=== PATIENT | male | born 1960 | race Caucasian/White ===

== ENCOUNTER 2016-12-22 10:50 | Inpatient (IN) | payer MEDICAID, OTHER ==
[~2016-12-22 10:50] MED LIST: ACET325S8 PO; ASPI-119 PO; FOLITAB6 PO; MULTIVITAMIN/IRON PO; PHEN200C3 PO; QUET1TAB67 PO; [UNRECOGNIZED DRUG - CODE] PO
[2016-12-22] MEDS ORDERED: SODIUM CHLORIDE 0.9% FLUSH 5 ML FLUSH IVF PRN ×2 (11:00→16:30)
[2016-12-22] MEDS ORDERED: levETIRAcetam 1000 MG INJ 100 ML IV ONE (11:00)
[2016-12-22] MEDS ORDERED: SODIUM CHLOR 0.9% 1000 ML INJ 1,000 ML IV ONE (11:00)
--- NOTE | 2016-12-22 11:18 | PD ---
HPI Chief Complaint: seizure Time Seen by Provider: 10:53 Travel History International Travel<30 days: No Contact w/Intl Traveler<30days: No History of Present Illness HPI Patient is a 56-year-old male with history of dementia, psychosis, seizures, COPD, paranoid schizophrenia, depression, hypertension, cerebral infarction, history of alcohol abuse, presents to ER from [facility], presents to the emergency room for evaluation of seizure episode. As per EMS, patient had 3 seizures within a half hour of each other. Reports that his first seizure lasted 25 seconds, his second seizure lasted 35 seconds, his third seizure lasted about 3-1/2 minutes. Patient currently post-ictal at this time and is unable to provide history of present illness. Patient does take phenytoin 200 mg twice a day, divalproex ER 750 mg twice a day, as well as Keppra 1000 milligrams in the morning and Keppra 1500 mg at bedtime for his seizures. Patient unable to provide history of present illness this time. Patient's PCP is Dr. John Arguelles [facility] Past Medical History Asthma: No Blood Disorders: No Anxiety: Yes Depression: Yes Heart Rhythm Problems: No Cancer: No Cardiovascular Problems: Yes (BILATERAL CAROTID BRUIT) High Cholesterol: No Congestive Heart Failure: No COPD: Yes Cerebrovascular Accident: No Diminished Hearing: No Endocrine: No Gastrointestinal Disorders: Yes GERD: No Glaucoma: No Genitourinary: No Headaches: No Hepatitis: Yes Hiatal Hernia: No Hypertension: Yes Immune Disorder: No Kidney Stones: No Musculoskeletal: No Neurologic: Yes (DEMENTIA, CLOSED HEAD INJURY,SEIZURE DISORDER, HX OF INTRACRANIAL HEMORRHAG) Psychiatric: Yes (DEMENTIA, ANXIETY, DEPRESSION) Reproductive: No Respiratory: Yes (COPD,HX OF PULMONARY MRSA) Myocardial Infarction: No Seizures: Yes Sleep Apnea: No Ulcer: No Past Surgical History Appendectomy: No Cholecystectomy: No Neurologic Surgery: Yes ([facility] 2003) Pacemaker: No Other Surgery: Yes Social History Alcohol Use: Yes (HX OF ETOH ABUSE) Tobacco Use: Yes (2 PPD) Substance Use: Yes (HX OF LONGSTANDING ETOH ABUSE, HX OF RECREATION DRUG USE) Allergies-Medications (Allergen,Severity, Reaction): Coded Allergies: *MDRO Multi-Drug Resistant Organism (Verified Allergy, Unknown, 12/22/16) mrsa sputum Reported Meds & Prescriptions Reported Meds & Active Scripts Active Reported Keppra (Levetiracetam) 750 Mg Tab 1,500 Mg PO HS Keppra (Levetiracetam) 1,000 Mg Tab 1,000 Mg PO DAILY Depakote ER (Divalproex Sodium) 250 Mg Usha 250 Mg PO BID Depakote ER (Divalproex Sodium) 500 Mg Usha 500 Mg PO BID Dilantin-125 Liq (Phenytoin) 125 Mg/5 Ml Susp 200 Mg PO BID Lorazepam 0.5 Mg Tab 0.25 Mg PO HS Caltrate 600 (Calcium Carbonate) 1,500 Mg Tab 1 Tab PO BID Vitamin D3 (Cholecalciferol) 2,000 Unit Cap 2,000 Units PO DAILY @ 1700 Thiamine (Thiamine HCl) 100 Mg Tab 100 Mg PO DAILY @ 1700 Multi Vitamin with Iron (Multiple Vitamins W/ Iron) 1 Tab Tab 1 Tab PO DAILY @ [address] (Aspirin) 81 Mg Tabdr 81 Mg PO DAILY @ 1700 Alendronate (Alendronate Sodium) 70 Mg Tab 70 Mg PO Q7D ON SUNDAY @ 06 Sodium Chloride 1 Gm Tab 1 Gm PO BID Mirtazapine 7.5 Mg Tab 7.5 Mg PO HS Celexa (Citalopram Hydrobromide) 20 Mg Tab 20 Mg PO DAILY @ 1800 Folate (Folic Acid) 1 Mg Tab 1 Mg PO DAILY Seroquel XR (Quetiapine Fumarate) 50 Mg Tab 100 Mg PO HS Mapap (Acetaminophen) 325 Mg Tab 650 Mg PO Q4HR PRN Review of Systems ROS Limitations: Altered Mental Status Physical Exam Exam Limitations: Altered Mental Status, Poor Historian Narrative GENERAL: patient postictal SKIN: Warm and dry. HEAD: Atraumatic. Normocephalic. EYES:. No injection or drainage. ENT: No nasal bleeding or discharge. Mucous membranes pink and moist. NECK: Trachea midline. No JVD. CARDIOVASCULAR: Regular rate and rhythm. No murmur appreciated. RESPIRATORY: No accessory muscle use. Clear to auscultation. Breath sounds equal bilaterally. GASTROINTESTINAL: Abdomen soft, non-tender, nondistended. Hepatic and splenic margins not palpable. MUSCULOSKELETAL: No obvious deformities. No clubbing. No cyanosis. No edema. NEUROLOGICAL: Awake and alert. Patient refuses to move extremities or follow commands. Data Data Last Documented VS Vital Signs Date Time Temp Pulse Resp B/P Pulse Ox O2 Delivery O2 Flow Rate FiO2 12/22/16 11:32 18 99 Nasal Cannula 2 12/22/16 11:31 99.9 97 104/73 Orders Complete Blood Count With Diff (12/22/16 11:00) Phenytoin (Dilantin) (12/22/16 11:00) Valproic Acid (Depakene) (12/22/16 11:00) Drug Screen, Random Urine (12/22/16 11:00) Electrocardiogram (12/22/16 ) Ct Brain W/O Iv Contrast(Rout) (12/22/16 ) Blood Glucose (12/22/16 11:00) Ecg Monitoring (12/22/16 11:00) Iv Access Insert/Monitor (12/22/16 11:00) Oximetry (12/22/16 11:00) Comprehensive Metabolic Panel (12/22/16 11:00) Sodium Chlor 0.9% 1000 Ml Inj (Ns 1000 M (12/22/16 11:00) Sodium Chloride 0.9% Flush (Ns Flush) (12/22/16 11:00) Ua Includes Microscopic (12/22/16 11:00) Levetiracetam 1000 Mg Inj (Keppra 1000 M (12/22/16 11:00) Influenzae A/B Antigen (12/22/16 11:42) Blood Culture (12/22/16 11:42) Chest, Single Ap (12/22/16 13:32) Admit Order (Ed Use Only) (12/22/16 14:22) Labs Laboratory Tests Test 12/22/16 12/22/16 11:18 12:08 White Blood Count 8.6 TH/MM3 Red Blood Count 4.53 MIL/MM3 Hemoglobin 14.6 GM/DL Hematocrit 43.5 % Mean Corpuscular Volume 95.9 FL Mean Corpuscular Hemoglobin 32.2 PG Mean Corpuscular Hemoglobin 33.6 % Concent Red Cell Distribution Width 13.8 % Platelet Count 139 TH/MM3 Mean Platelet Volume 9.6 FL Neutrophils (%) (Auto) 65.3 % Lymphocytes (%) (Auto) 17.2 % Monocytes (%) (Auto) 13.9 % Eosinophils (%) (Auto) 2.7 % Basophils (%) (Auto) 0.9 % Neutrophils # (Auto) 5.6 TH/MM3 Lymphocytes # (Auto) 1.5 TH/MM3 Monocytes # (Auto) 1.2 TH/MM3 Eosinophils # (Auto) 0.2 TH/MM3 Basophils # (Auto) 0.1 TH/MM3 CBC Comment DIFF FINAL Differential Comment Urine Color YELLOW Urine Turbidity CLEAR Urine pH 8.0 Urine Specific Virgil 1.017 Urine Protein 30 mg/dL Urine Glucose (UA) NEG mg/dL Urine Ketones NEG mg/dL Urine Occult Blood SMALL Urine Nitrite NEG Urine Bilirubin NEG Urine Urobilinogen LESS THAN 2.0 MG/DL Urine Leukocyte Esterase NEG Urine RBC 23 /hpf Urine WBC 6 /hpf Urine Squamous Epithelial <1 /hpf Cells Urine Transitional Epithelial <1 /hpf Cells Urine Mucus FEW /lpf Urine Opiates Screen NEG Urine Barbiturates Screen NEG Urine Amphetamines Screen NEG Urine Benzodiazepines Screen NEG Urine Cocaine Screen NEG Urine Cannabinoids Screen NEG MDM Medical Decision Making Medical Screen Exam Complete: Yes Emergency Medical Condition: Yes Interpretation(s) EKG at 1108: Normal sinus rhythm at 95bmp, qt/qtc: 322/374, no acute changes incomplete RBBB Vital Signs Date Time Temp Pulse Resp B/P Pulse Ox O2 Delivery O2 Flow Rate FiO2 12/22/16 11:32 18 99 Nasal Cannula 2 12/22/16 11:31 99.9 97 18 104/73 98 Nasal Cannula 2 12/22/16 11:25 99.9 97 18 104/74 97 Laboratory Tests Test 12/22/16 12/22/16 11:18 12:08 White Blood Count 8.6 TH/MM3 (4.0-11.0) Red Blood Count 4.53 MIL/MM3 (4.50-5.90) Hemoglobin 14.6 GM/DL (13.0-17.0) Hematocrit 43.5 % (39.0-51.0) Mean Corpuscular Volume 95.9 FL (80.0-100.0) Mean Corpuscular Hemoglobin 32.2 PG (27.0-34.0) Mean Corpuscular Hemoglobin 33.6 % Concent (32.0-36.0) Red Cell Distribution Width 13.8 % (11.6-17.2) Platelet Count 139 TH/MM3 (150-450) Mean Platelet Volume 9.6 FL (7.0-11.0) Neutrophils (%) (Auto) 65.3 % (16.0-70.0) Lymphocytes (%) (Auto) 17.2 % (9.0-44.0) Monocytes (%) (Auto) 13.9 % (0.0-8.0) Eosinophils (%) (Auto) 2.7 % (0.0-4.0) Basophils (%) (Auto) 0.9 % (0.0-2.0) Neutrophils # (Auto) 5.6 TH/MM3 (1.8-7.7) Lymphocytes # (Auto) 1.5 TH/MM3 (1.0-4.8) Monocytes # (Auto) 1.2 TH/MM3 (0-0.9) Eosinophils # (Auto) 0.2 TH/MM3 (0-0.4) Basophils # (Auto) 0.1 TH/MM3 (0-0.2) CBC Comment DIFF FINAL Differential Comment Urine Color YELLOW (YELLW/STRAW) Urine Turbidity CLEAR (CLEAR) Urine pH 8.0 (5.0-8.5) Urine Specific Virgil 1.017 (1.002-1.035) Urine Protein 30 mg/dL (NEG-TRACE) Urine Glucose (UA) NEG mg/dL (NEG) Urine Ketones NEG mg/dL (NEG) Urine Occult Blood SMALL (NEG) Urine Nitrite NEG (NEG) Urine Bilirubin NEG (NEG) Urine Urobilinogen LESS THAN 2.0 MG/DL (LESS THAN 2.0) Urine Leukocyte Esterase NEG (NEG) Urine RBC 23 /hpf (0-3) Urine WBC 6 /hpf (0-5) Urine Squamous Epithelial <1 /hpf (0-5) Cells Urine Transitional Epithelial <1 /hpf (NONE) Cells Urine Mucus FEW /lpf (OCC) Urine Opiates Screen NEG (NEG) Urine Barbiturates Screen NEG (NEG) Urine Amphetamines Screen NEG (NEG) Urine Benzodiazepines Screen NEG (NEG) Urine Cocaine Screen NEG (NEG) Urine Cannabinoids Screen NEG (NEG) Last Impressions Head CT 12/22/16 0000 Signed Impressions: Service Date/Time: Thursday, December 22, 2016 11:45 - CONCLUSION: 1. Old areas of cortical infarct involving the high left posterior parietal cortex and postsurgical changes. Stable compared to previous exam. Randolph Ulloa MD Differential Diagnosis Seizure, ACS, arrhythmia, intracranial hemorrhage, CVA, TIA, electrolyte abnormality Narrative Course Patient is a 56-year-old male who presents to emergency room after he had 3 seizures today. Patient does have history of seizure, and is on 3 different medications for this. He also has a history of dementia, I am unsure what his baseline mental status is. Patient at this time is post ictal and is not following commands, will place patient on seizure precautions. Patient was placed on a monitor and storage bin tender upon arrival to the emergency room. We' ll continue to monitor patient. CAT scan of his head as well as labs obtained. We'll obtain levels for his seizure medication. We'll also give patient a Keppra Bolus. case reviewed with Dr Kong who accepts pt to service of Dr Miller Call made to lab, bmp hemolyzed for the second time - lab request redraw - I have requested that lab come to ER to draw sample given 2 hemolyzed samples Diagnosis Primary Impression: Status epilepticus Additional Impression: Hyponatremia Admitting Information Admitting Physician Requests: Marilu Shah DO Dec 22, 2016 11:18
[2016-12-22 11:25] VITALS: BP 104/74; PULSE 97; RESP 18; TEMP 99.9; O2SAT 97
[2016-12-22 11:31] VITALS: BP 104/73; PULSE 97; RESP 18; TEMP 99.9; O2SAT 98
[2016-12-22 11:32] VITALS: RESP 18; O2SAT 99
--- NOTE | 2016-12-22 12:00 | RADRPT ---
EXAM DATE/TIME: 12/22/2016 11:45 [facility] COMPARISON: CT BRAIN W/O CONTRAST, March 21, 2013, 3:52. INDICATIONS : Altered mental status. RADIATION DOSE: 38.36 CTDIvol (mGy) MEDICAL HISTORY : Dementia. Seizures. Chronic obstructive pulmonary disease. SURGICAL HISTORY : Craniotomy. ENCOUNTER: Initial ACUITY: 1 day PAIN SCALE: 5/10 LOCATION: cranial TECHNIQUE: Multiple contiguous axial images were obtained of the head. Using automated exposure control and adj ustment of the mA and/or kV according to patient size, radiation dose was kept as low as reasonably a chievable to obtain optimal diagnostic quality images. FINDINGS: The examination demonstrates dilation of the ventricular system. Ventricles appear dilated in proport ion to sulcal atrophy. The ventricles are stable when compared to prior study dated 03/21/13. The exam demonstrates a size where of encephalomalacia in the high left parietal cortex. This is stab le compared to previous examination as well. No mass lesion is identified. No acute intracranial hemorrhage is present. No significant extra-axial fluid collections are seen. The visualized bony structures demonstrate postsurgical changes within the skull but are otherwise un remarkable. CONCLUSION: 1. Old areas of cortical infarct involving the high left posterior parietal cortex and postsurgical c hanges. Stable compared to previous exam. Randolph Ulloa MD on December 22, 2016 at 11:57 Board Certified Radiologist. This report was verified electronically.
[2016-12-22 12:03] LABS: AUTOMATED NEUTROPHIL # 5.6 TH/MM3 (1.8-7.7); BASOPHIL # 0.1 TH/MM3 (0-0.2); BASOPHIL % 0.9 % (0.0-2.0); EOSINOPHIL # 0.2 TH/MM3 (0-0.4); EOSINOPHIL % 2.7 % (0.0-4.0); HEMATOCRIT 43.5 % (39.0-51.0); HEMO FLAGS DIFF FINAL; LYMPH % 17.2 % (9.0-44.0); LYMPHOCYTE # 1.5 TH/MM3 (1.0-4.8); MEAN CELL VOLUME 95.9 FL (80.0-100.0); MEAN CORPUSCULAR HEMOGLOBIN 32.2 PG (27.0-34.0); MEAN CORPUSCULAR HGB CONC 33.6 % (32.0-36.0); MONO % 13.9 % (0.0-8.0); NEUT % 65.3 % (16.0-70.0); PLATELET COUNT 139 TH/MM3 (150-450); RED BLOOD COUNT 4.53 MIL/MM3 (4.50-5.90); RED CELL DISTRIBUTION WIDTH 13.8 % (11.6-17.2); WHITE BLOOD COUNT 8.6 TH/MM3 (4.0-11.0)
[2016-12-22 12:26] LABS: BLOOD, URINE SMALL (NEG); GLUCOSE,URINE NEG (NEG); KETONE, URINE NEG (NEG); MUCUS URINE FEW /lpf (OCC); NITRITE,URINE NEG (NEG); SQUAMOUS EPITHELIAL CELL URINE <1 /hpf (0-5); TRANSITIONAL EPI CELLS, URINE <1 /hpf; URINE COLOR YELLOW (YELLW/STRAW)
[2016-12-22 12:32] LABS: AMPHETAMINE, URINE NEG (NEG); BARBITURATES, URINE NEG (NEG); COCAINE, URINE NEG (NEG)
[2016-12-22] MEDS ORDERED: QUET50XR PO (14:20)
[2016-12-22] MEDS ORDERED: MAPA325T PO (14:20)
[2016-12-22] MEDS ORDERED: FOLI1TAB4 PO (14:21)
[2016-12-22] MEDS ORDERED: CELE20TA PO (14:24)
[2016-12-22] MEDS ORDERED: MIRT1TAB PO (14:24)
[2016-12-22] MEDS ORDERED: SODI1TAB PO (14:27)
[2016-12-22] MEDS ORDERED: ALEN1TAB48 PO (14:27)
[2016-12-22] MEDS ORDERED: ASPI81TA5 PO (14:30)
[2016-12-22] MEDS ORDERED: MULT-136 PO (14:30)
[2016-12-22] MEDS ORDERED: THIA100T PO (14:33)
[2016-12-22] MEDS ORDERED: VITA2000 PO (14:33)
[2016-12-22] MEDS ORDERED: CALTTAB5 PO (14:33)
--- NOTE | 2016-12-22 14:33 | RADRPT ---
EXAM DATE/TIME: 12/22/2016 14:13 [facility] COMPARISON: CHEST SINGLE AP, December 03, 2012, 16:02. INDICATIONS : Seizure. MEDICAL HISTORY : Chronic obstructive pulmonary disease. Seizures. SURGICAL HISTORY : None. ENCOUNTER: Initial ACUITY: 1 day PAIN SCORE: 0/10 LOCATION: Bilateral chest FINDINGS: The examination demonstrates moderate COPD changes. The heart is normal size. Mediastinal contours ar e within normal limits. The visualized bony structures demonstrate degenerative changes but are other kumar intact. CONCLUSION: COPD changes. No acute abnormality identified Randolph Ulloa MD on December 22, 2016 at 14:30 Board Certified Radiologist. This report was verified electronically.
[2016-12-22] MEDS ORDERED: LORA-373 PO (14:35)
[2016-12-22] MEDS ORDERED: DILA125S PO (14:40)
[2016-12-22] MEDS ORDERED: DEPA500T3 PO (14:40)
[2016-12-22] MEDS ORDERED: DIVA250ER PO (14:42)
[2016-12-22] MEDS ORDERED: KEPP10002 PO (14:45)
[2016-12-22] MEDS ORDERED: KEPP750T PO (14:45)
[2016-12-22 15:24] LABS: ALT (GPT) 21 U/L (12-78); ANION GAP 7 MEQ/L (5-15); BICARBONATE 23.2 MEQ/L (21.0-32.0); BLOOD UREA NITROGEN 9 MG/DL (7-18); CHLORIDE 100 MEQ/L (98-107); GLOMERULAR FILTRATION RATE 112 ML/MIN (>89); SODIUM (NA) 130 MEQ/L (136-145)
[2016-12-22 15:26] LABS: ALKALINE PHOSPHATASE 92 U/L (45-117); TOTAL BILIRUBIN ADULT 0.6 MG/DL (0.2-1.0)
[2016-12-22 15:28] LABS: AST (GOT) 37 U/L (15-37); POTASSIUM 5.2 MEQ/L (3.5-5.1)
[2016-12-22] MEDS ORDERED: ACETAMINOPHEN 325 MG TAB PO PRN (16:30)
--- NOTE | 2016-12-22 16:56 | EKG ---
Date Performed: 12/22/2016 Time Performed: 11:08:43 PTAGE: 56 years EKG: Sinus rhythm POSSIBLE LEFT ATRIAL ENLARGEMENT INCOMPLETE RIGHT BUNDLE BRANCH BLOCK Compared to prior tracing no s ignificant change BORDERLINE ECG PREVIOUS TRACING : 03/21/2013 04.09 DOCTOR: Thierno Dias Interpretating Date/Time 12/22/2016 16:53:36
[2016-12-22] MEDS: SODIUM CHLOR 0.9% 1000 ML INJ 1,000 ML IV SCH ×2 (17:00→18:19)
--- NOTE | 2016-12-22 17:11 | HHI.FPPN ---
Subjective Subjective Patient seen and examined with the resident team. Case reviewed and discussed Please refer to resident H&P for further details regarding HPI, ROS, PMH, SurgHx , FH and SocHx In summary, patient is a 56yoM with a history of baseline cognitive impairment and seizure disorder on multiple anti-epileptics, presenting with status epilepticus. Per report, patient had 3 witnessed seizures at [facility] where he resides. He was loaded with Keppra upon arrival to the ED and is laying in bed at the time of our encounter. [facility] Objective Objective Last Impressions Chest X-Ray 12/22/16 1332 Signed Impressions: Service Date/Time: Thursday, December 22, 2016 14:13 - CONCLUSION: COPD changes. No acute abnormality identified Randolph Ulloa MD Head CT 12/22/16 0000 Signed Impressions: Service Date/Time: Thursday, December 22, 2016 11:45 - CONCLUSION: 1. Old areas of cortical infarct involving the high left posterior parietal cortex and postsurgical changes. Stable compared to previous exam. Randolph Ulloa MD Laboratory Tests - Abnormals Test 12/22/16 12/22/16 12/22/16 11:18 12:08 14:56 Platelet Count 139 TH/MM3 Monocytes (%) (Auto) 13.9 % Monocytes # (Auto) 1.2 TH/MM3 Urine Protein 30 mg/dL Urine Occult Blood SMALL Urine RBC 23 /hpf Urine WBC 6 /hpf Urine Mucus FEW /lpf Sodium Level 130 MEQ/L Potassium Level 5.2 MEQ/L Calcium Level 8.3 MG/DL Albumin 3.3 GM/DL Phenytoin (Dilantin) Level 9.4 MCG/ML Valproic Acid (Depakene) Level 20 MCG/ML Vital Signs 12/22/16 12/22/16 12/22/16 11:25 11:31 11:32 Temp 99.9 99.9 Pulse 97 97 Resp 18 18 18 B/P 104/74 104/73 Pulse Ox 97 98 99 O2 Delivery Nasal Cannula Nasal Cannula O2 Flow Rate 2 2 Physical exam GENERAL: WDWN male, appears older than age. NAD, awake SKIN: Warm and dry. Seborrheic dermatitis across face and scalp HEAD: Normocephalic AT. EYES: No scleral icterus. No injection or drainage. There is horizontal nystagmus bilaterally ENT: OP without evidence of buccal mucosal damage or tongue-biting NECK: Supple, trachea midline. No JVD or lymphadenopathy. No audible carotid bruits CARDIOVASCULAR: Regular rate and rhythm without murmurs, gallops, or rubs. RESPIRATORY: Breath sounds equal bilaterally across anterior lung muller. No accessory muscle use. GASTROINTESTINAL: Abdomen soft, non-tender, nondistended. Normal active BS. + Loss of urine. MUSCULOSKELETAL: No cyanosis, or edema. NO calf tenderness BACK: Nontender without obvious deformity. No CVA tenderness. NEURO: Awake, oriented to self alone. Cannot follow commands. MAEW Assessment Assessment 56yoM admitted with: Status epilepticus Hx seizure disorder Hx CVA with cognitive impairment UTI Hyponatremia Hyperkalemia PLAN PLAN Neuro checks Head CT neg Check levels of anti-epileptic medications EEG UA concerning for UTI, will follow urine culture Empiric antibiotic coverage of UTI Neurology consultation Seizure precautions Resume home meds as appropriate PT consult Follow electrolytes Patient seen and examined with the resident team. Case reviewed and discussed Agree with plan of care as discussed with me and documented in the resident note. Polina Miller MD Dec 22, 2016 17:11
[2016-12-22] MEDS ORDERED: PILL SPLITTER OTHER PRN (17:15)
--- NOTE | 2016-12-22 18:00 | HHI.HP ---
HPI Service Family Medicine Primary Care Physician Unknown Admission Diagnosis Status Epilepticus Diagnoses: International Travel<30 Days: No Contact w/Intl Traveler<30days: No Known Affected Area: No History of Present Illness Patient is a 56-year-old man with a history of seizure disorder on Keppra, Dilantin, and valproic acid, TBI, CVA, alcohol and substance abuse, dementia, psychiatric conditions who presents post-ictal after seizures. Per report, patient had 3 witnessed seizures at [facility]. Patient is unable to provide any history because of his altered mental status, post-ictal and with baseline cognitive impairment. (Milan Navarro MD R1) Review of Systems ROS Limitations: Altered Mental Status, Poor Historian (Milan Navarro MD R1) Past Family Social History Past Medical History From chart review: TBI status post craniotomy with subsequent seizure disorder Hepatitis C positive COPD Anxiety Depression EtOH abuse Seizures disorder Past Surgical History Left parietal Craniotomy in 2002 secondary to intracranial hemorrhage on 03/2003 Reported Medications Reported Meds & Active Scripts Active Reported Keppra (Levetiracetam) 750 Mg Tab 1,500 Mg PO HS Keppra (Levetiracetam) 1,000 Mg Tab 1,000 Mg PO DAILY Depakote ER (Divalproex Sodium) 250 Mg Usha 250 Mg PO BID Depakote ER (Divalproex Sodium) 500 Mg Usha 500 Mg PO BID Dilantin-125 Liq (Phenytoin) 125 Mg/5 Ml Susp 200 Mg PO BID Lorazepam 0.5 Mg Tab 0.25 Mg PO HS Caltrate 600 (Calcium Carbonate) 1,500 Mg Tab 1 Tab PO BID Vitamin D3 (Cholecalciferol) 2,000 Unit Cap 2,000 Units PO DAILY @ 1700 Thiamine (Thiamine HCl) 100 Mg Tab 100 Mg PO DAILY @ 1700 Multi Vitamin with Iron (Multiple Vitamins W/ Iron) 1 Tab Tab 1 Tab PO DAILY @ [address] (Aspirin) 81 Mg Tabdr 81 Mg PO DAILY @ 1700 Alendronate (Alendronate Sodium) 70 Mg Tab 70 Mg PO Q7D ON SUNDAY @ 06 Sodium Chloride 1 Gm Tab 1 Gm PO BID Mirtazapine 7.5 Mg Tab 7.5 Mg PO HS Celexa (Citalopram Hydrobromide) 20 Mg Tab 20 Mg PO DAILY @ 1800 Folate (Folic Acid) 1 Mg Tab 1 Mg PO DAILY Seroquel XR (Quetiapine Fumarate) 50 Mg Tab 100 Mg PO HS Mapap (Acetaminophen) 325 Mg Tab 650 Mg PO Q4HR PRN (Milan Navarro MD R1) Allergies: Coded Allergies: *MDRO Multi-Drug Resistant Organism (Verified Allergy, Unknown, 12/22/16) mrsa sputum Active Ordered Medications Current Medications Medications (Trade) Dose Ordered Sig/Fish Route Start Time Stop Time Status Last Admin (Depakote Er) 250 mg BID PO 12/22/16 21:00 12/22/16 23:53 (Depakote Er) 500 mg BID PO 12/22/16 21:00 12/22/16 23:52 (Folate) 1 mg DAILY PO 12/23/16 09:00 (Keppra) 1,000 mg DAILY PO 12/23/16 09:00 (Keppra) 1,500 mg HS PO 12/22/16 21:00 12/22/16 23:52 (Ativan) 0.25 mg HS PO 12/22/16 21:00 12/22/16 23:53 (Remeron) 7.5 mg HS PO 12/22/16 21:00 12/22/16 23:51 (Dilantin Liq) 200 mg BID PO 12/22/16 21:00 12/22/16 23:51 (Sodium Chloride) 1 gm BID PO 12/22/16 21:00 12/22/16 23:52 (Vitamin B1) 100 mg DAILY PO 12/23/16 09:00 Quetiapine Fumarate 50 mg 50 mg BID PO 12/22/16 21:00 12/22/16 23:53 (NS 1000 ml Inj) 1,000 ml @ 75 mls/hr [id number] IV 12/22/16 17:00 12/22/16 17:00 (NS Flush) 2 ml UNSCH PRN IVF 12/22/16 16:30 (NS Flush) 2 ml BID IVF 12/22/16 21:00 12/22/16 23:54 (Tylenol) 650 mg Q4H PRN PO 12/22/16 16:30 (Oscal) 500 mg BID PO 12/22/16 21:00 12/22/16 23:53 (Vitamin D3) 2,000 units DAILY PO 12/23/16 09:00 (CeleXA) 20 mg DAILY PO 12/23/16 09:00 Miscellaneous 1 ea 1 ea UNSCH PRN OTHER 12/22/16 17:15 (Rocephin Inj/NS Inj) 100 ml @ 200 mls/hr Q24H IV 12/22/16 22:00 12/22/16 23:55 Family History From chart review: Mom has COPD. Dad secondary to complications of asbestosis. Brother had unknown cancer. Daughter of unknown reasons. Social History History of alcohol and tobacco use per chart review. (Milan Navarro MD R1) Physical Exam Vital Signs Vital Signs Date Time Temp Pulse Resp B/P Pulse Ox O2 Delivery O2 Flow Rate FiO2 12/22/16 11:32 18 99 Nasal Cannula 2 12/22/16 11:31 99.9 97 18 104/73 98 Nasal Cannula 2 12/22/16 11:25 99.9 97 18 104/74 97 Physical Exam GENERAL: This is a well-nourished, well-developed patient, in no apparent distress. SKIN: Linear scars running horizontally across chest. No rashes, ecchymoses or lesions. Cool and dry. HEAD: Atraumatic. Normocephalic. EYES: Pupils equal round and reactive. Extraocular motions intact. No scleral icterus. No injection or drainage. ENT: Nose without bleeding, purulent drainage. Moist mucous membranes. Poor dentition. Airway patent. NECK: Trachea midline. No JVD or lymphadenopathy. Supple, nontender, no meningeal signs. CARDIOVASCULAR: Regular rate and rhythm without murmurs, gallops, or rubs. RESPIRATORY: Clear to auscultation. Breath sounds equal bilaterally. No wheezes , rales, or rhonchi. GASTROINTESTINAL: Abdomen soft, non-tender, nondistended. No guarding. MUSCULOSKELETAL: Extremities without clubbing, cyanosis, or edema. No joint tenderness, effusion, or edema noted. No calf tenderness. NEUROLOGICAL: Awake and alert and oriented to person but not to place or time or situation. Cranial nerves II through XII grossly intact. Motor and sensory grossly within normal limits. Patient cognitively impaired. Laboratory Laboratory Tests Test 12/22/16 12/22/16 12/22/16 11:18 12:08 14:56 White Blood Count 8.6 Red Blood Count 4.53 Hemoglobin 14.6 Hematocrit 43.5 Mean Corpuscular Volume 95.9 Mean Corpuscular Hemoglobin 32.2 Mean Corpuscular Hemoglobin 33.6 Concent Red Cell Distribution Width 13.8 Platelet Count 139 Mean Platelet Volume 9.6 Neutrophils (%) (Auto) 65.3 Lymphocytes (%) (Auto) 17.2 Monocytes (%) (Auto) 13.9 Eosinophils (%) (Auto) 2.7 Basophils (%) (Auto) 0.9 Neutrophils # (Auto) 5.6 Lymphocytes # (Auto) 1.5 Monocytes # (Auto) 1.2 Eosinophils # (Auto) 0.2 Basophils # (Auto) 0.1 CBC Comment DIFF FINAL Differential Comment Urine Color YELLOW Urine Turbidity CLEAR Urine pH 8.0 Urine Specific [place] 1.017 Urine Protein 30 Urine Glucose (UA) NEG Urine Ketones NEG Urine Occult Blood SMALL Urine Nitrite NEG Urine Bilirubin NEG Urine Urobilinogen LESS THAN 2.0 Urine Leukocyte Esterase NEG Urine RBC 23 Urine WBC 6 Urine Squamous Epithelial <1 Cells Urine Transitional Epithelial <1 Cells Urine Mucus FEW Urine Opiates Screen NEG Urine Barbiturates Screen NEG Urine Amphetamines Screen NEG Urine Benzodiazepines Screen NEG Urine Cocaine Screen NEG Urine Cannabinoids Screen NEG Sodium Level 130 Potassium Level 5.2 Chloride Level 100 Carbon Dioxide Level 23.2 Anion Gap 7 Blood Urea Nitrogen 9 Creatinine 0.73 Estimat Glomerular Filtration 112 Rate Random Glucose 87 Calcium Level 8.3 Total Bilirubin 0.6 Aspartate Amino Transf 37 (AST/SGOT) Alanine Aminotransferase 21 (ALT/SGPT) Alkaline Phosphatase 92 Total Protein 7.4 Albumin 3.3 Phenytoin (Dilantin) Level 9.4 Valproic Acid (Depakene) Level 20 Date/Time Procedure Status Source Growth 12/22/16 12:20 Aerobic Blood Culture Received Blood Peripheral Pending 12/22/16 12:20 Anaerobic Blood Culture Received Blood Peripheral Pending 12/22/16 12:08 Urine Culture Received Urine Clean Catch Pending (Milan Navarro MD R1) Result Diagram: 12/22/16 1118 12/22/16 1456 Imaging Last Impressions Chest X-Ray 12/22/16 1332 Signed Impressions: Service Date/Time: Thursday, December 22, 2016 14:13 - CONCLUSION: COPD changes. No acute abnormality identified Randolph Ulloa MD Head CT 12/22/16 0000 Signed Impressions: Service Date/Time: Thursday, December 22, 2016 11:45 - CONCLUSION: 1. Old areas of cortical infarct involving the high left posterior parietal cortex and postsurgical changes. Stable compared to previous exam. Randolph Ulloa MD Course In emergency department, patient received Keppra 1000 mg IV bolus 1, UA, CMP, CT brain without IV contrast, EKG, UDS, Depakote level, Dilantin level, CBC, blood culture, influenza A/B antigen, chest x-ray. (Milan Navarro MD R1) Assessment and Plan Assessment and Plan Patient is a 56-year-old man with a history of seizure disorder on Keppra, Dilantin, and valproic acid, TBI, CVA, alcohol and substance abuse, dementia, psychiatric conditions who presents post-ictal after 3 witnessed seizures. Patient also found to have hyponatremia, hyperkalemia, possible UTI. Code Status No code DNR per documents from [facility] Discussed Condition With dw Dr. Reinier Kong, (Milan Navarro MD R1) Attending Attestation The patient has been seen and examined. The chart and all resident notes have been reviewed. I agree that inpatient care is appropriate and that a two midnight stay is expected for the reasons documented in the resident history and physical. I have discussed this with the resident and certify the resident s order for inpatient admission. (Polina Miller MD) Problem List: (1) Status epilepticus Status: Acute Plan: Patient is a 56-year-old man with a history of seizure disorder on Keppra , Dilantin, and valproic acid, TBI, CVA, alcohol and substance abuse, dementia, psychiatric conditions who presents post-ictal after 3 witnessed seizures. Patient also found to have hyponatremia, hyperkalemia, possible UTI. Admit to inpatient Consult neurology BMP, CBC daily Keppra, Dilantin, Depakote levels Continue home antiepileptic medications as below: * Depakote ER 500 mg by mouth twice a day * Depakote ER 250 mg by mouth twice a day * Keppra 1.5 g by mouth daily at bedtime * Keppra 1 g by mouth daily * Ativan 0.25 mg by mouth daily at bedtime * Dilantin liquid 200 mg by mouth twice a day Head CT negative Neuro checks Monitor vital signs EEG Seizure precautions PT consult Administer oxygen as needed Normal saline IV at 75 mL per hour Blood culture, urine culture, influenza A/B antigen (2) UTI (urinary tract infection) Status: Resolved Plan: UA concerning for UTI. Follow urine culture Empiric antibiotic coverage of UTI with ceftriaxone 1 g IV every 24 hours; may discontinue pending results of urine culture (3) Hyponatremia Status: Acute Plan: Patient since with hyponatremia with sodium of 130. Normal saline IV at 75 mL per hour (4) Hyperkalemia Status: Acute Plan: Patient presents with hyperkalemia with potassium 5.2. No peaked T's in EKG. Continue to monitor (5) Psychiatric diagnosis Status: Chronic Plan: Continue home medications as below: Celexa 20 mg by mouth daily Remeron 7.5 mg by mouth daily at bedtime Seroquel 50 mg by mouth twice a day (6) Nutrition, metabolism, and development symptoms Status: Acute Plan: Fluids: Normal saline IV at 75 mL per hour Electrolytes: Monitor and replete as above Nutrition: Regular basic diet. Continue patient's home nutritional supplements as below: Calcium carbonate 500 mg by mouth twice a day Cholecalciferol 2000 units by mouth daily Folic acid 1 mg by mouth daily Thiamine 100 mg by mouth daily GI prophylaxis: None currently indicated (7) No contraindication to deep vein thrombosis (DVT) prophylaxis Status: Acute Plan: DVT prophylaxis: Lovenox 40 mg subcutaneous every 24 hours (Milan Navarro MD R1) Physician Certification 2 Midnight Certification Type: Admission for Inpatient Services Order for Inpatient Services The services are ordered in accordance with Medicare regulations or non- Medicare payer requirements, as applicable. In the case of services not specified as inpatient-only, they are appropriately provided as inpatient services in accordance with the 2-midnight benchmark. Estimated LOS (days): 2 2 days is the estimated time the patient will need to remain in the hospital, assuming treatment plan goals are met and no additional complications. Post-Hospital Plan: Not yet determined (Milan Navarro MD R1) Milan Navarro MD R1 Dec 22, 2016 18:00 Polina Miller MD Dec 26, 2016 11:09
[2016-12-22 18:49] VITALS: BP 110/53; PULSE 88; RESP 22; TEMP 98.2; O2SAT 98
[2016-12-22 19:00] VITALS: PULSE 85
[2016-12-22 20:55] VITALS: BP 109/65; PULSE 77; RESP 18; TEMP 98.3; O2SAT 97
[2016-12-22] MEDS: MIRTAZAPINE 15 MG TAB PO SCH (23:51)
[2016-12-22] MEDS: PHENYTOIN SUSP 100 MG/4 ML CUP PO SCH (23:51)
[2016-12-22] MEDS: levETIRAcetam 500 MG TAB PO SCH (23:52)
[2016-12-22] MEDS: DIVALPROEX SODIUM E.R. 500 MG TAB PO SCH (23:52)
[2016-12-22] MEDS: SODIUM CHLORIDE 1 GRAM TAB PO SCH (23:52)
[2016-12-22] MEDS: CALCIUM CARBONATE 1.25 GM (CA 500 MG) TAB PO SCH (23:53)
[2016-12-22] MEDS: DIVALPROEX SODIUM E.R. 250 MG TAB PO SCH (23:53)
[2016-12-22] MEDS: QUEtiapine FUMARATE 25 MG TAB PO SCH (23:53)
[2016-12-22] MEDS: LORazepam 0.5 MG TAB PO SCH (23:53)
[2016-12-22] MEDS: SODIUM CHLORIDE 0.9% FLUSH 5 ML FLUSH IVF SCH (23:54)
[2016-12-22] MEDS: cefTRIAXone INJ 1,000 MG in SODIUM CHLORIDE 0.9% INJ 100 ML IV SCH (23:55)
[2016-12-23] VITALS (11 sets, daily range): BP systolic 66–138; BP diastolic 46–73; PULSE 57–78; RESP 16–20; TEMP 95.3–98.8; O2SAT 93–98
[2016-12-23] MEDS: ENOXAPARIN SODIUM 40 MG/0.4 ML SYRINGE SQ SCH (05:54)
[2016-12-23 07:16] LABS: AUTOMATED NEUTROPHIL # 4.5 TH/MM3 (1.8-7.7); BASOPHIL # 0.1 TH/MM3 (0-0.2); EOSINOPHIL # 0.2 TH/MM3 (0-0.4); EOSINOPHIL % 2.5 % (0.0-4.0); HEMATOCRIT 39.8 % (39.0-51.0); HEMO FLAGS DIFF FINAL; LYMPH % 33.8 % (9.0-44.0); LYMPHOCYTE # 3.4 TH/MM3 (1.0-4.8); MEAN CELL VOLUME 96.1 FL (80.0-100.0); MEAN CORPUSCULAR HEMOGLOBIN 32.5 PG (27.0-34.0); MEAN CORPUSCULAR HGB CONC 33.8 % (32.0-36.0); MONO % 17.8 % (0.0-8.0); NEUT % 44.9 % (16.0-70.0); PLATELET COUNT 131 TH/MM3 (150-450); RED BLOOD COUNT 4.14 MIL/MM3 (4.50-5.90); RED CELL DISTRIBUTION WIDTH 13.4 % (11.6-17.2); WHITE BLOOD COUNT 9.9 TH/MM3 (4.0-11.0)
[2016-12-23 07:47] LABS: BICARBONATE 27.4 MEQ/L (21.0-32.0); POTASSIUM 3.9 MEQ/L (3.5-5.1)
[2016-12-23] MEDS: SODIUM CHLORIDE 0.9% FLUSH 5 ML FLUSH IVF SCH ×2 (09:00→21:00)
[2016-12-23] MEDS: levETIRAcetam 500 MG TAB PO SCH ×2 (10:25→23:11)
[2016-12-23] MEDS: PHENYTOIN SUSP 100 MG/4 ML CUP PO SCH (10:26)
[2016-12-23] MEDS: CHOLECALCIFEROL (VIT D3) 1000 UNIT TAB PO SCH (10:26)
[2016-12-23] MEDS: QUEtiapine FUMARATE 25 MG TAB PO SCH ×2 (10:26→23:11)
[2016-12-23] MEDS: DIVALPROEX SODIUM E.R. 250 MG TAB PO SCH (10:26)
[2016-12-23] MEDS: CITALOPRAM HYDROBROMIDE 20 MG TAB PO SCH (10:26)
[2016-12-23] MEDS: THIAMINE HCL 100 MG TAB PO SCH (10:26)
[2016-12-23] MEDS: DIVALPROEX SODIUM E.R. 500 MG TAB PO SCH (10:26)
[2016-12-23] MEDS: FOLIC ACID 1 MG TAB PO SCH (10:27)
[2016-12-23] MEDS: CALCIUM CARBONATE 1.25 GM (CA 500 MG) TAB PO SCH ×2 (10:27→23:11)
[2016-12-23] MEDS: SODIUM CHLORIDE 1 GRAM TAB PO SCH ×2 (10:27→23:12)
--- NOTE | 2016-12-23 10:47 | HHI.FPPN ---
Subjective Remarks No acute events overnight. Vital signs remained stable. Patient has not had recurrence of seizures. He denies any new concerns this time including chest pain, shortness of breath, focal weakness, or changes in vision. Of note, there was a single documented episode of hypotension overnight of 67/ 48 at 4 AM. The medicine team and covering residents did not receive any notification of this blood pressure. Discussion with the nurses's morning reveals no reports overnight of hypotension. Recheck of blood pressure since that time has revealed pressures in the 100s/50s to 60s which has been consistent with all other vital signs. Unclear if this was a documentation error. Current nurse endorses that he will look into the specifics and give clarification. Patient has remained asymptomatic. (Irvin Benavidez MD R3) Objective Vitals Vital Signs Date Time Temp Pulse Resp B/P Pulse Ox O2 Delivery O2 Flow Rate FiO2 12/23/16 08:53 100/55 12/23/16 08:00 95.3 60 18 110/55 94 12/23/16 05:00 105/60 12/23/16 04:00 98.2 63 18 67/48 98 66/46 12/23/16 01:24 97 2.00 12/23/16 00:00 98.0 78 18 113/73 98 12/22/16 20:55 98.3 77 18 109/65 97 12/22/16 19:00 85 12/22/16 18:49 98.2 88 22 110/53 98 12/22/16 11:32 18 99 Nasal Cannula 2 12/22/16 11:31 99.9 97 18 104/73 98 Nasal Cannula 2 12/22/16 11:25 99.9 97 18 104/74 97 I/O 12/22/16 12/22/16 12/22/16 12/23/16 12/23/16 12/23/16 07:00 15:00 23:00 07:00 15:00 23:00 Output Total 950 ml Balance -950 ml Output Urine Total 950 ml # Voids 1 (Irvin Benavidez MD R3) Result Diagram: 12/23/1663612/23/1637 Objective Remarks GENERAL: Slightly disheveled appearing white male resting in hospital bed, pulling covers over his head SKIN: No rashes, ecchymoses or lesions. Cool and dry. EYES: Pupils equal round and reactive. Extraocular motions intact. No scleral icterus. No injection or drainage. CARDIOVASCULAR: Regular rate and rhythm without murmurs, gallops, or rubs. RESPIRATORY: Clear to auscultation. Breath sounds equal bilaterally. No wheezes , rales, or rhonchi. GASTROINTESTINAL: Abdomen soft, non-tender, nondistended. MUSCULOSKELETAL: Extremities without clubbing, cyanosis, or edema. No joint tenderness, effusion, or edema noted. No calf tenderness. NEUROLOGICAL: Awake and alert. Cranial nerves II through XII intact. Motor and sensory grossly within normal limits. Five out of 5 muscle strength in all muscle groups. Normal speech. (Irvin Benavidez MD R3) A/P Assessment and Plan Patient is a 56-year-old man with a history of seizure disorder on Keppra, Dilantin, and valproic acid, TBI, CVA, alcohol and substance abuse, dementia, psychiatric conditions who presented after 3 witnessed seizures. Patient also found to have hyponatremia, hyperkalemia, possible UTI. Discharge Planning Pending stabilization of medical condition, anticipate discharge back to [facility] in 1-3 days. Case management consulted to assist with placement. (Irvin Benavidez MD R3) Attending Attestation Patient seen and examined with the resident team. Case reviewed and discussed Agree with plan of care as discussed with me and documented in the resident note. (Polina Miller MD) Problem List: (1) Status epilepticus Status: Acute Plan: Patient is a 56-year-old man with a history of seizure disorder on Keppra , Dilantin, and valproic acid, TBI, CVA, alcohol and substance abuse, dementia, psychiatric conditions who presents post-ictal after 3 witnessed seizures. Phenytoin and Valproic acid levels found to be subtherapeutic on admission. Keppra level pending. No evidence of recent polysubstance use. CT head negative. Antiseizure medications have been continued and patient has not had recurrence. We'll proceed with following plan: - Neurology consulted - Continue home antiepileptic medications as below: * Depakote ER 500 mg by mouth twice a day * Depakote ER 250 mg by mouth twice a day * Keppra 1.5 g by mouth daily at bedtime * Keppra 1 g by mouth daily * Ativan 0.25 mg by mouth daily at bedtime * [place] liquid 200 mg by mouth twice a day - Keppra level pending Neuro checks Monitor vital signs EEG pending Seizure precautions PT consult Administer oxygen as needed Blood culture pending (2) UTI (urinary tract infection) Status: Resolved Plan: UA concerning for possible UTI. Urine culture pending Empiric antibiotic coverage of UTI with ceftriaxone 1 g IV every 24 hours; may discontinue pending results of urine culture (3) Hyponatremia Status: Acute Plan: Na 130 on admission, now 134. Continue IV NS @ 75 mL per hour (4) Hyperkalemia Status: Acute Plan: Resolved. Currently 3.9. Continue to monitor (5) Psychiatric diagnosis Status: Chronic Plan: Continue home medications as below: Celexa 20 mg by mouth daily Remeron 7.5 mg by mouth daily at bedtime Seroquel 50 mg by mouth twice a day (6) COPD (chronic obstructive pulmonary disease) Status: Chronic Plan: Pt reports hx of COPD - Begin Duonebs prn shortness of breath/wheezing (7) Nutrition, metabolism, and development symptoms Status: Acute Plan: Fluids: Normal saline IV at 75 mL per hour Electrolytes: Monitor and replete as above Nutrition: Regular basic diet. Continue patient's home nutritional supplements as below: Calcium carbonate 500 mg by mouth twice a day Cholecalciferol 2000 units by mouth daily Folic acid 1 mg by mouth daily Thiamine 100 mg by mouth daily GI prophylaxis: None currently indicated (8) No contraindication to deep vein thrombosis (DVT) prophylaxis Status: Acute Plan: DVT prophylaxis: Lovenox 40 mg subcutaneous every 24 hours (Irvin Benavidez MD R3) Irvin Benavidez MD R3 Dec 23, 2016 10:47 Polina Miller MD Dec 26, 2016 11:11
[2016-12-23] MEDS: RESP: ALBUTEROL 2.5 MG/IPRATROPIUM 0.5 MG NEB (SCH) NEB ×2 (12:17→19:59)
[2016-12-23] MEDS ORDERED: LORazepam 2 MG/ML VIAL IV PUSH PRN (21:30)
--- NOTE | 2016-12-23 21:41 | MB ---
cc: JOHNNA ZHENG DATE OF CONSULTATION 12/23/16 REASON FOR CONSULTATION Recurrent seizure. HISTORY OF PRESENT ILLNESS Mr. Spring is a 56-year-old man who has history of seizure disorder and takes valproic acid, Dilantin and Keppra also has a history of alcohol abuse and dementia. He was admitted after having three witnessed seizures at his health care facility and was brought to the hospital. He has had no recurrent seizures since admission. PAST MEDICAL HISTORY 1. History of traumatic brain injury with craniotomy 2. Secondary seizure disorder, 3. Hepatitis C, 4. COPD, 5. Depression, 6. Alcohol abuse. 7. History of intracranial hemorrhage in 2002 requiring craniotomy MEDICATIONS 1. Keppra 750 mg two at night, 1000 mg in the morning 2. Depakote 750 mg b.i.d. 3. Dilantin 200 mg b.i.d., 4. lorazepam 0.25 mg at bedtime, 5. Caltrate 6. Thiamine, 7. Multivitamin, 8. Aspirin. 9. Sodium 10. Alendronate 11. Mirtazapine 12. Celexa 13. Folate 14. Seroquel. ALLERGIES MDRO NEUROLOGIC EXAMINATION Vital signs: Blood pressure 138/60, pulse 67, respirations 16, temperature 98 degrees. Higher cortical function - he is lethargic but arousable. Follows simple commands. Cranial nerves intact. Motor exam - there is no focal deficit. Reflexes are 2+ symmetric with no Babinski sign present. IMAGING STUDIES CT of the brain - areas of encephalomalacia left posterior parietal area and postsurgical changes. No acute change present. LABORATORY DATA White count is 9900, hemoglobin 13.4, hematocrit 39%, platelet count 131,000. Sodium is 134, potassium 3.9, chloride 101, CO2 27, BUN is 13, creatinine 0.71, GFR is 116, glucose 82, calcium 8.4. His phenytoin level 7.9. Valproic acid level yesterday was 20, today 57. IMPRESSION Breakthrough seizures probably due to relatively low anticonvulsant levels. RECOMMENDATIONS We will increase the phenytoin as well as the valproic acid doses and follow levels. Place him under seizure precautions. MD ENID Avila/ /9:15 PM /9:26 PM
--- NOTE | 2016-12-23 23:01 | MG ---
cc: JOHNNA ZHENG Lab No: [id number] Date: 12/23/16 Age: Sex: M Race: TECHNIQUE 17 channel EEG. DESCRIPTION Background rhythm is generally slow in the theta frequency. There appears to more slowing of the left hemisphere. There are no epileptiform discharges present. There is occasional muscle artifact. Photic stimulation results in a modest driving response. INTERPRETATION Abnormal study on the basis of generalized slowing. More focal slowing over the left hemisphere, rule out structural lesion. MD ENID Avila/ /10:31 PM /11:00 PM
[2016-12-23] MEDS: LORazepam 0.5 MG TAB PO SCH (23:11)
[2016-12-23] MEDS: VALPROIC ACID 250 MG CAP PO SCH (23:12)
[2016-12-23] MEDS: MIRTAZAPINE 15 MG TAB PO SCH (23:12)
[2016-12-23] MEDS: cefTRIAXone INJ 1,000 MG in SODIUM CHLORIDE 0.9% INJ 100 ML IV SCH ×2 (23:13→23:30)
[2016-12-23] MEDS: SODIUM CHLOR 0.9% 1000 ML INJ 1,000 ML IV SCH ×2 (23:15→23:28)
[2016-12-24] VITALS: BP 113/53; PULSE 73; RESP 20; TEMP 97.8; O2SAT 94
[2016-12-24 05:33] VITALS: BP 123/59; PULSE 59; RESP 18; TEMP 97.6; O2SAT 96
[2016-12-24] MEDS: ENOXAPARIN SODIUM 40 MG/0.4 ML SYRINGE SQ SCH (05:34)
[2016-12-24 06:57] LABS: HEMATOCRIT 38.5 % (39.0-51.0); MEAN CELL VOLUME 96.1 FL (80.0-100.0); MEAN CORPUSCULAR HEMOGLOBIN 32.7 PG (27.0-34.0); PLATELET COUNT 123 TH/MM3 (150-450); RED BLOOD COUNT 4.01 MIL/MM3 (4.50-5.90); RED CELL DISTRIBUTION WIDTH 13.2 % (11.6-17.2); REVIEW FLAG FINAL; WHITE BLOOD COUNT 7.3 TH/MM3 (4.0-11.0)
[2016-12-24 07:17] LABS: BICARBONATE 27.2 MEQ/L (21.0-32.0); POTASSIUM 4.1 MEQ/L (3.5-5.1)
[2016-12-24 08:00] VITALS: PULSE 58
[2016-12-24] MEDS: RESP: ALBUTEROL 2.5 MG/IPRATROPIUM 0.5 MG NEB (SCH) NEB ×4 (08:00→11:09)
[2016-12-24 08:31] VITALS: BP 116/59; PULSE 58; RESP 18; TEMP 96; O2SAT 97
[2016-12-24] MEDS: SODIUM CHLOR 0.9% 1000 ML INJ 1,000 ML IV SCH (09:00)
[2016-12-24] MEDS: SODIUM CHLORIDE 0.9% FLUSH 5 ML FLUSH IVF SCH (09:00)
[2016-12-24] MEDS: levETIRAcetam 500 MG TAB PO SCH (09:27)
[2016-12-24] MEDS: PHENYTOIN SUSP 100 MG/4 ML CUP PO SCH ×2 (09:27→12:31)
[2016-12-24] MEDS: VALPROIC ACID 250 MG CAP PO SCH (09:28)
[2016-12-24] MEDS: THIAMINE HCL 100 MG TAB PO SCH (09:28)
[2016-12-24] MEDS: CITALOPRAM HYDROBROMIDE 20 MG TAB PO SCH (09:28)
[2016-12-24] MEDS: CALCIUM CARBONATE 1.25 GM (CA 500 MG) TAB PO SCH (09:28)
[2016-12-24] MEDS: FOLIC ACID 1 MG TAB PO SCH (09:29)
[2016-12-24] MEDS: CHOLECALCIFEROL (VIT D3) 1000 UNIT TAB PO SCH (09:29)
[2016-12-24] MEDS: SODIUM CHLORIDE 1 GRAM TAB PO SCH (09:29)
[2016-12-24] MEDS: QUEtiapine FUMARATE 25 MG TAB PO SCH (09:29)
--- NOTE | 2016-12-24 10:33 | HHI.FPPN ---
Subjective Remarks No acute events overnight. Afebrile. Stable overnight. Patient denies any complaints. He reports that he feels well. He denies having any seizures. He denies any pain anywhere in his body. He reports that he wants to go home. Objective Vitals Vital Signs Date Time Temp Pulse Resp B/P Pulse Ox O2 Delivery O2 Flow Rate FiO2 12/24/16 08:31 96.0 58 18 116/59 97 12/24/16 05:33 97.6 59 18 123/59 96 12/24/16 00:00 97.8 73 20 113/53 94 12/23/16 20:00 98.8 67 16 138/60 98 12/23/16 19:59 96 21 12/23/16 16:00 96.5 57 17 113/56 96 12/23/16 16:00 57 12/23/16 12:00 97.9 65 20 107/58 94 I/O 12/23/16 12/23/16 12/23/16 12/24/16 12/24/16 12/24/16 07:00 15:00 23:00 07:00 15:00 23:00 Intake Total 360 ml 820 ml Output Total 950 ml Balance -950 ml 360 ml 820 ml Intake Oral 360 ml IV Total 820 ml Output Urine Total 950 ml # Voids 2 1 # Bowel Movements 0 0 Result Diagram: 12/24/16 0615 12/24/16 0615 Imaging Last Impressions Chest X-Ray 12/22/16 1332 Signed Impressions: Service Date/Time: Thursday, December 22, 2016 14:13 - CONCLUSION: COPD changes. No acute abnormality identified Randolph Ulloa MD Head CT 12/22/16 0000 Signed Impressions: Service Date/Time: Thursday, December 22, 2016 11:45 - CONCLUSION: 1. Old areas of cortical infarct involving the high left posterior parietal cortex and postsurgical changes. Stable compared to previous exam. Randolph Ulloa MD Objective Remarks GENERAL: Slightly disheveled appearing white male resting in hospital bed. SKIN: No rashes, ecchymoses or lesions. Cool and dry. EYES: Pupils equal round and reactive. Extraocular motions intact. No scleral icterus. No injection or drainage. CARDIOVASCULAR: Regular rate and rhythm without murmurs, gallops, or rubs. RESPIRATORY: Clear to auscultation. Breath sounds equal bilaterally. No wheezes , rales, or rhonchi. GASTROINTESTINAL: Abdomen soft, non-tender, nondistended. MUSCULOSKELETAL: Extremities without clubbing, cyanosis, or edema. No joint tenderness, effusion, or edema noted. No calf tenderness. NEUROLOGICAL: Awake and alert. Cranial nerves II through XII intact. Motor and sensory grossly within normal limits. Five out of 5 muscle strength in all muscle groups. Normal speech. A/P Assessment and Plan Patient is a 56-year-old man with a history of seizure disorder on Keppra, Dilantin, and valproic acid, TBI, CVA, alcohol and substance abuse, dementia, psychiatric conditions who presented after 3 witnessed seizures. Patient also found to have hyponatremia, hyperkalemia, possible UTI. Discharge Planning Pending stabilization of medical condition, anticipate discharge back to [facility] today. Case management consulted to assist with return to SNF. Problem List: (1) Status epilepticus Status: Acute Plan: Patient is a 56-year-old man with a history of seizure disorder on Keppra , Dilantin, and valproic acid, TBI, CVA, alcohol and substance abuse, dementia, psychiatric conditions who presents post-ictal after 3 witnessed seizures. Patient also found to have hyponatremia, hyperkalemia, possible UTI. Admit to inpatient Consult neurology. Recommendations appreciated. BMP, CBC daily Dilantin, Depakote levels low. Neurology increased anti-seizure medications as below: antiepileptic medications as below: * Valproic acid 1000mg po q12h * Keppra 1.5 g by mouth daily at bedtime * Keppra 1 g by mouth daily * Ativan 0.25 mg by mouth daily at bedtime * Dilantin liquid 200 mg by mouth tid Head CT negative Neuro checks Monitor vital signs EEG read as abnormal with generalized slowing. Focal slowing in left hemisphere , rule out structural lesion. Seizure precautions PT consult recommended PT at rehab upon return to SNF Administer oxygen as needed Normal saline IV at 75 mL per hour Blood culture, urine culture negative --Follow up Valproic acid and phenytoin levels in 7-10 days --Follow up with PCP and Neurologist (2) UTI (urinary tract infection) Status: Resolved Plan: UA initially concerning for UTI. Urine culture NGTD Discontinue empiric antibiotic coverage of UTI with ceftriaxone 1 g IV every 24 hours given no growth of urine culture (3) Hyponatremia Status: Acute Plan: Patient presented with hyponatremia with sodium of 130. Resolved today with Na of 135. Normal saline IV at 75 mL per hour (4) Hyperkalemia Status: Acute Plan: Patient presented with hyperkalemia with potassium 5.2. No peaked T's in EKG. K+ of 4.1 today. Continue to monitor (5) Psychiatric diagnosis Status: Chronic Plan: Continue home medications as below: Celexa 20 mg by mouth daily Remeron 7.5 mg by mouth daily at bedtime Seroquel 50 mg by mouth twice a day (6) Nutrition, metabolism, and development symptoms Status: Acute Plan: Fluids: Normal saline IV at 75 mL per hour Electrolytes: Monitor and replete as above Nutrition: Regular basic diet. Continue patient's home nutritional supplements as below: Calcium carbonate 500 mg by mouth twice a day Cholecalciferol 2000 units by mouth daily Folic acid 1 mg by mouth daily Thiamine 100 mg by mouth daily GI prophylaxis: None currently indicated (7) No contraindication to deep vein thrombosis (DVT) prophylaxis Status: Acute Plan: DVT prophylaxis: Lovenox 40 mg subcutaneous every 24 hours Milan Navarro MD R1 Dec 24, 2016 10:32
[2016-12-24] MEDS ORDERED: PHEN125S PO (11:35)
[2016-12-24] MEDS ORDERED: VALP250 PO (11:35)
--- NOTE | 2016-12-24 11:37 | HHI.DCPOC ---
Discharge Care Plan Diagnosis: (1) Seizure disorder (2) Status epilepticus Goals to Promote Your Health * To prevent worsening of your condition and complications, please take medications as prescribed. Please follow-up with laboratory analysis of blood levels of valproic acid and Dilantin in 7-10 days. * To maintain your health at the optimal level, follow-up with your doctor. Directions to Meet Your Goals Take your medications as prescribed Follow your dietary instruction Follow activity as directed Keep your appointments as scheduled Take your immunizations and boosters as scheduled If your symptoms worsen call your PCP, if no PCP go to Urgent Care Center or Emergency Room Smoking is Dangerous to Your Health. Avoid second hand smoke Call the 24-hour hour crisis hotline for domestic abuse at Milan Navarro MD R1 Dec 24, 2016 11:37
== END 2016-12-24 16:56 | DRG 101 ==
LOC: NEDAMB 10:50 → NEDA 14:24 → N05B 18:15
PROVIDERS: ADMIT Family Medicine; ATTEND Family Medicine
DX: G40.901 Epilepsy, unspecified, not intractable, with status epilepticus (principal); E87.1 Hypo-osmolality and hyponatremia; F03.90 Unspecified dementia, unspecified severity, without behavioral disturbance, psychotic disturbance, mood disturbance, and anxiety; G93.89 Other specified disorders of brain; N39.0 Urinary tract infection, site not specified; I45.10 Unspecified right bundle-branch block; I69.319 Unspecified symptoms and signs involving cognitive functions following cerebral infarction; F17.210 Nicotine dependence, cigarettes, uncomplicated; J44.9 Chronic obstructive pulmonary disease, unspecified; I10 Essential (primary) hypertension; F41.9 Anxiety disorder, unspecified; F32.9 Major depressive disorder, single episode, unspecified; B19.20 Unspecified viral hepatitis C without hepatic coma; E87.5 Hyperkalemia; Z66 Do not resuscitate; Z86.14 Personal history of Methicillin resistant Staphylococcus aureus infection; Z87.820 Personal history of traumatic brain injury
CPT/HCPCS: 70450; 71010; 76937; 80048; 80053; 80164; 80177; 80185; 80307; 80320; 81001; 85025; 85027; 87040; 87086; 93005; 94640; 94664; 95819; 96374; J0696; J1650; J1953; J7030

== ENCOUNTER → 2017-08-29 | Outpatient (CLI) | payer OTHER ==
[~2017-08-29] MED LIST changes: -ACET325S8 PO; +ALEN1TAB48 PO; -ASPI-119 PO; +ASPI81TA5 PO; +CALTTAB5 PO; +CELE20TA PO; +FOLI1TAB4 PO; -FOLITAB6 PO; +KEPP10002 PO; +KEPP750T PO; +LORA-373 PO; +MAPA325T PO; +MIRT1TAB PO; +MULT-136 PO; -MULTIVITAMIN/IRON PO; +PHEN125S PO; -PHEN200C3 PO; -QUET1TAB67 PO; +QUET50XR PO; +SODI1TAB PO; +THIA100T PO; +VALP250 PO; +VITA2000 PO; -[UNRECOGNIZED DRUG - CODE] PO
--- NOTE | 2017-08-29 13:39 | RADRPT ---
EXAM DATE/TIME: 08/29/2017 12:34 [facility] COMPARISON: CT BRAIN W/O CONTRAST, December 22, 2016, 11:45. INDICATIONS : Severe dementia. RADIATION DOSE: 32.05 CTDIvol (mGy) MEDICAL HISTORY : Cardiovascular disease. Dementia. SURGICAL HISTORY : Craniotomy. ENCOUNTER: Initial ACUITY: 1 day PAIN SCALE: 0/10 LOCATION: cranial TECHNIQUE: Multiple contiguous axial images were obtained of the head. Using automated exposure control and adj ustment of the mA and/or kV according to patient size, radiation dose was kept as low as reasonably a chievable to obtain optimal diagnostic quality images. DICOM format image data is available electro nically for review and comparison. FINDINGS: CEREBRUM: The configuration of the surgical site in the left mid and high convexity parietal region is stable f rom prior with extra-axial enlargement of the left occipital horn and prominent encephalomalacia. No evidence of acute blood products, midline shift, or acute infarction. There is also marked prominen ce of the ventricles, sulci, and basal cisterns, characteristic of severe central cortical atrophy, s table from December 2016. POSTERIOR FOSSA: The cerebellum and brainstem are intact. The 4th ventricle is midline. The cerebellopontine angle i s unremarkable. EXTRACRANIAL: The visualized portion of the orbits is intact. SKULL: Good approximation of the craniotomy flap. CONCLUSION: 1. No acute findings. 2. Stable appearance of the severe central cortical atrophy and surgical site left parietal region. Mat Dempsey MD on August 29, 2017 at 13:36 Board Certified Radiologist. This report was verified electronically.
== END ==
LOC: HRAD 12:07
PROVIDERS: ATTEND Family Medicine
DX: F03.90 Unspecified dementia, unspecified severity, without behavioral disturbance, psychotic disturbance, mood disturbance, and anxiety (principal)
CPT/HCPCS: 70450